=== PATIENT | male | born 1990 | race Caucasian/White ===

== ENCOUNTER 2019-11-29 09:46 | Inpatient (IN) ==
[2019-11-29] MEDS ORDERED: *HR* LORazepam 2 MG/ML VIAL IM PRN (09:54)
[2019-11-29] MEDS ORDERED: Mag Hydrox/Al Hydrox/Simeth 30 ML UDC PO PRN (09:54)
[2019-11-29] MEDS ORDERED: Haloperidol Lactate 5 MG/ML VIAL IM PRN (09:54)
[2019-11-29] MEDS ORDERED: haloperidoL 5 MG TABLET PO PRN (09:54)
[2019-11-29] MEDS ORDERED: traZODone 50 MG TABLET PO PRN (09:54)
[2019-11-29] MEDS ORDERED: *HR* LORazepam 1 MG TABLET PO PRN (09:54)
[2019-11-29] MEDS ORDERED: hydrOXYzine pamoate 25 MG CAPSULE PO PRN (09:54)
[2019-11-29] MEDS ORDERED: MOM Conc 10 ML UD.LIQ PO PRN (09:54)
[2019-11-29] MEDS: Divalproex (12 HR) 500 MG TABLET PO SCH ×2 (11:47→20:27)
[2019-11-29] MEDS: Famotidine 20 MG TABLET PO SCH ×2 (11:48→20:27)
[2019-11-29] MEDS: Nicotine 21 MG PATCH.TD24 TD SCH (14:21)
[2019-11-29] MEDS: Acetaminophen 325 MG TABLET PO PRN ×2 (14:45→20:27)
[2019-11-30] MEDS: Famotidine 20 MG TABLET PO SCH (08:21)
[2019-11-30] MEDS: Divalproex (12 HR) 500 MG TABLET PO SCH (08:22)
[2019-11-30] MEDS: Nicotine 21 MG PATCH.TD24 TD SCH (08:22)
[2019-11-30 08:55] VITALS: BP 130/82
== END 2019-11-30 13:50 | disposition home or self-care (01) | DRG 751 ==
LOC: 1ANU 09:46
PROVIDERS: ADMIT Psychiatry & Neurology Psychiatry; ATTEND Psychiatry & Neurology Psychiatry

== ENCOUNTER 2021-02-20 02:33 | Observation (INO) ==
[2021-02-20 21:32] LABS: Influenza A PCR Negative (Negative); Influenza B PCR Negative (Negative); Resp. Syncytial Virus PCR Negative (Negative)
[2021-02-20 21:38] LABS: SARS-CoV-2 by PCR (In House) Positive (Negative)
[2021-02-21] MEDS ORDERED: Naloxone 0.4 MG/ML INJ IVP PRN (00:09)
[2021-02-21] MEDS ORDERED: Melatonin 3 MG TABLET PO PRN (00:09)
[2021-02-21] MEDS ORDERED: Ondansetron 4 MG/2 ML VIAL IVP PRN (00:09)
[2021-02-21] MEDS: Nicotine 21 MG PATCH.TD24 TD SCH (04:55)
[2021-02-21] MEDS ORDERED: Famotidine 20 MG TABLET PO SCH (07:30)
[2021-02-21] MEDS ORDERED: Divalproex (12 HR) 500 MG TABLET PO SCH (09:00)
[2021-02-21] MEDS: Divalproex (12 HR) 500 MG TABLET PO SCH ×2 (17:36→21:44)
[2021-02-21] MEDS ORDERED: *HR* LORazepam 2 MG/ML VIAL IVP PRN (18:02)
[2021-02-21] MEDS ORDERED: *HR* LORazepam 1 MG TABLET PO STA (18:03)
[2021-02-21] MEDS: Acetaminophen 325 MG TABLET PO PRN (21:45)
[2021-02-22 00:42] LABS: Hematocrit 47.8 % (37.5-50.1); Hemoglobin 16.7 g/dL (12.9-16.9); Mean Corpuscular HGB Conc 34.9 g/dL (31.6-35.5); Mean Corpuscular Hemoglobin 30.3 pg (28.0-33.3); Mean Corpuscular Volume 86.8 fL (83.0-100.0); Mean Platelet Volume 11.4 fL (9.4-12.4); Platelet Count 122 K/mcL (140-400); Red Blood Count 5.51 M/mcL (4.19-5.50); Red Cell Distribution Width 12.9 % (11.5-14.5); White Blood Count 4.3 K/mcL (4.3-11.1)
[2021-02-22 01:02] LABS: BUN/Creatinine Ratio 11 (6-26); Blood Urea Nitrogen 11 mg/dL (6-20); Calcium 9.1 mg/dL (8.6-10.3); Carbon Dioxide 24 mEq/L (23-29); Chloride 106 mEq/L (98-107); Glucose 85 mg/dL (70-105); Magnesium 2.1 mg/dL (1.6-2.6); Osmolality,Calculated 287 (280-300); Potassium 3.5 mEq/L (3.5-5.1); Sodium 139 mEq/L (136-145); eGFR For African Americans > 60 (> 60); eGFR For Non-African Americans > 60 (> 60)
[2021-02-22] MEDS: Acetaminophen 325 MG TABLET PO PRN ×3 (05:50→23:45)
[2021-02-22] MEDS: Divalproex (12 HR) 500 MG TABLET PO SCH ×3 (14:32→20:04)
[2021-02-22] MEDS: Nicotine 21 MG PATCH.TD24 TD SCH (17:01)
[2021-02-23] MEDS: *HR* Enoxaparin 40 MG/0.4 ML SYRINGE SQ SCH (05:31)
[2021-02-23] MEDS: Nicotine 21 MG PATCH.TD24 TD SCH (07:57)
[2021-02-23] MEDS: Divalproex (12 HR) 500 MG TABLET PO SCH ×3 (07:57→20:03)
[2021-02-23] MEDS: Acetaminophen 325 MG TABLET PO PRN (14:11)
[2021-02-23] MEDS ORDERED: OLANZapine 5 MG TAB.RAPDIS PO ONE (16:20)
[2021-02-24] MEDS: *HR* Enoxaparin 40 MG/0.4 ML SYRINGE SQ SCH (05:03)
[2021-02-24] MEDS: Divalproex (12 HR) 500 MG TABLET PO SCH ×3 (08:04→20:45)
[2021-02-24] MEDS: Nicotine 21 MG PATCH.TD24 TD SCH (08:04)
[2021-02-24] MEDS: OLANZapine 5 MG TAB.RAPDIS PO PRN (15:39)
[2021-02-24] MEDS: Acetaminophen 325 MG TABLET PO PRN (17:42)
[2021-02-25] MEDS: *HR* Enoxaparin 40 MG/0.4 ML SYRINGE SQ SCH (06:22)
[2021-02-25] MEDS: Divalproex (12 HR) 500 MG TABLET PO SCH ×2 (10:36→14:05)
[2021-02-25] MEDS: Nicotine 21 MG PATCH.TD24 TD SCH (10:37)
[2021-02-25 10:54] VITALS: TEMP 98
[2021-02-25] MEDS: Acetaminophen 325 MG TABLET PO PRN (14:04)
[2021-02-25] MEDS: OLANZapine 5 MG TAB.RAPDIS PO PRN (14:05)
[2021-02-25 14:29] VITALS: BP 135/81; PULSE 74; O2SAT 100
== END 2021-02-25 14:48 | disposition home or self-care (01) ==
LOC: EMEROOARM 02:33 → 3BNU 02:33 → SUATTDRO 02-21 00:48 → 3BNU 02-21 01:02
PROVIDERS: ADMIT Internal Medicine; ATTEND Internal Medicine

== ENCOUNTER 2021-05-08 14:23 | Observation (INO) ==
[2021-05-08] MEDS ORDERED: Naloxone 0.4 MG/ML INJ IVP PRN (22:17)
[2021-05-09 02:58] LABS: Hematocrit 47.4 % (37.5-50.1); Hemoglobin 16.1 g/dL (12.9-16.9); Mean Corpuscular Volume 85.4 fL (83.0-100.0); Mean Platelet Volume 11.5 fL (9.4-12.4); Platelet Count 145 K/mcL (140-400); Red Blood Count 5.55 M/mcL (4.19-5.50); Red Cell Distribution Width 13.2 % (11.5-14.5); White Blood Count 5.3 K/mcL (4.3-11.1)
[2021-05-09 03:14] LABS: Alanine Aminotransferase 11 Units/L (7-52); Albumin 3.9 g/dL (3.5-5.7); Albumin/Globulin Ratio 1.6 (1.1-2.2); Alkaline Phosphatase 41 Units/L (34-104); Aspartate Amino Transferase 18 Units/L (13-39); BUN/Creatinine Ratio 16 (6-26); Bilirubin,Total 0.3 mg/dL (0.3-1.0); Blood Urea Nitrogen 13 mg/dL (6-20); Calcium 8.7 mg/dL (8.6-10.3); Carbon Dioxide 26 mEq/L (23-29); Chloride 108 mEq/L (98-107); Globulin 2.4 g/dL (2.4-3.5); Glucose 111 mg/dL (70-105); Osmolality,Calculated 287 (280-300); Potassium 3.7 mEq/L (3.5-5.1); Sodium 138 mEq/L (136-145); Total Protein 6.3 g/dL (6.4-8.9); eGFR For African Americans > 60 (> 60); eGFR For Non-African Americans > 60 (> 60)
[2021-05-09] MEDS ORDERED: Ipratropium 1 PUFF INHALER IH PRN (08:08)
[2021-05-09] MEDS ORDERED: Amiodarone Premix 150 MG/100 ML BAG IVPB ONE (10:33)
[2021-05-09] MEDS ORDERED: Amiodarone Premix 360 MG/200 ML BAG IVC ONE (11:00)
[2021-05-09] MEDS ORDERED: Perflutren Lipid Microsphere 1.3 ML in 0.9 % Sodium Chloride 8.7 ML IVP PRN (11:16)
[2021-05-09] MEDS: Metoprolol XL (24 HR) Succ 25 MG TAB.ER.24H PO SCH (11:54)
[2021-05-09] MEDS ORDERED: hydrOXYzine pamoate 25 MG CAPSULE PO PRN (13:28)
[2021-05-09] MEDS: Amiodarone Premix 360 MG/200 ML BAG IVC SCH (18:54)
[2021-05-09] MEDS: Divalproex (12 HR) 500 MG TABLET PO SCH (21:06)
[2021-05-10 01:47] LABS: Basophils % 0.5 %; Eosinophils # 0.1 K/mcL (0.0-0.6); Eosinophils % 0.9 %; Hematocrit 47.4 % (37.5-50.1); Hemoglobin 16.5 g/dL (12.9-16.9); Immature Granulocytes % 0.5 % (0-4); Lymphocytes # 2.2 K/mcL (0.6-4.6); Lymphocytes % 33.9 %; Mean Corpuscular HGB Conc 34.8 g/dL (31.6-35.5); Mean Corpuscular Hemoglobin 29.8 pg (28.0-33.3); Mean Corpuscular Volume 85.6 fL (83.0-100.0); Mean Platelet Volume 11.2 fL (9.4-12.4); Monocytes # 0.7 K/mcL (0.0-1.3); Neutrophils # 3.5 K/mcL (1.6-8.9); Platelet Count 157 K/mcL (140-400); Red Blood Count 5.54 M/mcL (4.19-5.50); Red Cell Distribution Width 13.2 % (11.5-14.5); Segmented Neutrophils % 54.2 %; White Blood Count 6.5 K/mcL (4.3-11.1)
[2021-05-10 02:11] LABS: BUN/Creatinine Ratio 16 (6-26); Blood Urea Nitrogen 14 mg/dL (6-20); Calcium 9.1 mg/dL (8.6-10.3); Carbon Dioxide 27 mEq/L (23-29); Chloride 108 mEq/L (98-107); Glucose 81 mg/dL (70-105); Osmolality,Calculated 288 (280-300); Potassium 3.7 mEq/L (3.5-5.1); Sodium 139 mEq/L (136-145); eGFR For African Americans > 60 (> 60); eGFR For Non-African Americans > 60 (> 60)
[2021-05-10] MEDS: Levothyroxine 25 MCG TABLET PO SCH (06:06)
[2021-05-10] MEDS: Amiodarone Premix 360 MG/200 ML BAG IVC SCH (06:06)
[2021-05-10] MEDS: Famotidine 20 MG TABLET PO SCH (08:32)
[2021-05-10] MEDS: Metoprolol XL (24 HR) Succ 25 MG TAB.ER.24H PO SCH (08:32)
[2021-05-10] MEDS: Divalproex (12 HR) 500 MG TABLET PO SCH ×2 (08:32→20:03)
[2021-05-10] MEDS: *HR* HYDROcodone/Acet 5/325 mg TABLET PO PRN ×2 (08:33→20:13)
[2021-05-10] MEDS: Vilazodone Hcl [Viibryd] 20 MG PO SCH (08:33)
[2021-05-10] MEDS: *HR* Amiodarone 200 MG TABLET PO SCH (20:02)
[2021-05-11 00:27] VITALS: O2SAT 95
[2021-05-11 02:20] VITALS: PULSE 60
[2021-05-11 04:03] LABS: Basophils % 0.3 %; Eosinophils # 0.1 K/mcL (0.0-0.6); Eosinophils % 1.3 %; Hematocrit 46.5 % (37.5-50.1); Hemoglobin 15.7 g/dL (12.9-16.9); Immature Granulocytes % 0.4 % (0-4); Lymphocytes # 2.5 K/mcL (0.6-4.6); Lymphocytes % 37.1 %; Mean Corpuscular HGB Conc 33.8 g/dL (31.6-35.5); Mean Corpuscular Hemoglobin 29.2 pg (28.0-33.3); Mean Corpuscular Volume 86.4 fL (83.0-100.0); Mean Platelet Volume 10.9 fL (9.4-12.4); Monocytes # 0.6 K/mcL (0.0-1.3); Monocytes % 8.8 %; Neutrophils # 3.5 K/mcL (1.6-8.9); Platelet Count 144 K/mcL (140-400); Red Blood Count 5.38 M/mcL (4.19-5.50); Red Cell Distribution Width 13.3 % (11.5-14.5); Segmented Neutrophils % 52.1 %; White Blood Count 6.8 K/mcL (4.3-11.1)
[2021-05-11 04:17] LABS: BUN/Creatinine Ratio 16 (6-26); Blood Urea Nitrogen 17 mg/dL (6-20); Calcium 8.7 mg/dL (8.6-10.3); Carbon Dioxide 31 mEq/L (23-29); Chloride 108 mEq/L (98-107); Glucose 78 mg/dL (70-105); Magnesium 1.9 mg/dL (1.6-2.6); Osmolality,Calculated 290 (280-300); Sodium 140 mEq/L (136-145); eGFR For African Americans > 60 (> 60); eGFR For Non-African Americans > 60 (> 60)
[2021-05-11 06:46] VITALS: BP 106/61; TEMP 98.2
[2021-05-11] MEDS: Levothyroxine 25 MCG TABLET PO SCH (07:51)
[2021-05-11] MEDS: *HR* HYDROcodone/Acet 5/325 mg TABLET PO PRN (07:52)
[2021-05-11] MEDS: Famotidine 20 MG TABLET PO SCH (07:52)
[2021-05-11] MEDS: *HR* Amiodarone 200 MG TABLET PO SCH (07:52)
[2021-05-11] MEDS: Divalproex (12 HR) 500 MG TABLET PO SCH (07:57)
[2021-05-11] MEDS: Vilazodone Hcl [Viibryd] 20 MG PO SCH (08:00)
[2021-05-11] MEDS ORDERED: Metoprolol XL (24 HR) Succ 25 MG TAB.ER.24H PO SCH (09:00)
== END 2021-05-11 15:38 | disposition home or self-care (01) ==
LOC: 3BNU → SUATTDRO 19:28 → 3NENU 05-09 17:20
PROVIDERS: ADMIT Internal Medicine; ATTEND Family Medicine